=== PATIENT | female | born 1975 | race Caucasian/White ===

== ENCOUNTER → 2020-05-26 | Outpatient (CLI) | payer OTHER ==
--- NOTE | 2020-05-26 14:42 | RAD ---
XR LUMBAR SPINE 2-3V DATE: 05/26/2020 9:45 AM INDICATION: Reason: BACK PAIN / Spl. Instructions: / History: COMPARISON: None. FINDINGS: Five non-rib bearing lumbar-type vertebral bodies are present. Bones/Alignment: No evidence of acute compression fracture. 4 mm anterolisthesis at L5-S1 Joints: Multilevel degenerative disc disease, worst and moderate to severe at L5-S1. Lower lumbar fac et arthropathy. Miscellaneous: IUD overlying the pelvis IMPRESSION: Degenerative disc disease, moderate to severe at L5-S1 Electronically signed by: Hermilo Paula MD (05/26/2020 2:40 PM) [id number]
--- NOTE | 2020-05-26 14:43 | RAD ---
XR EXAM OF ANKLE_RIGHT 2 VIEWS DATE: 05/26/2020 9:45 AM INDICATION: Reason: RIGHT ANKLE PAIN / Spl. Instructions: / History: COMPARISON: None. FINDINGS: Bones: There is no evidence of acute fracture or dislocation. Joints: The ankle mortise is congruent. No widening of the distal tibiofibular syndesmosis. Miscellaneous: None. IMPRESSION: No acute osseous abnormality. Electronically signed by: Hermilo Paula MD (05/26/2020 2:40 PM) [id number]
--- NOTE | 2020-05-26 14:43 | RAD ---
XR KNEE_RT 1-2 VIEWS DATE: 05/26/2020 9:45 AM INDICATION: Reason: RIGHT KNEE PAIN / Spl. Instructions: / History: COMPARISON: None. FINDINGS: Bones: There is no evidence of acute fracture or dislocation. Joints: The joint spaces are normal. There is no joint effusion. Miscellaneous: None. IMPRESSION: Normal exam Electronically signed by: Hermilo Paula MD (05/26/2020 2:41 PM) [id number]
--- NOTE | 2020-05-26 14:44 | RAD ---
XR HIP_RT 2-3VIEWS DATE: 05/26/2020 9:45 AM INDICATION: RIGHT HIP PAIN / Spl. Instructions: / History: COMPARISON: None. FINDINGS: Bones: There is no evidence of acute fracture or dislocation. Joints: The joint spaces are normal. Miscellaneous: IUD overlying the pelvis IMPRESSION: No evidence of acute fracture. Electronically signed by: Hermilo Paula MD (05/26/2020 2:41 PM) [id number]
== END ==
LOC: DXRAD 09:31
PROVIDERS: ATTEND Family Medicine
DX: M51.37 Other intervertebral disc degeneration, lumbosacral region (principal); M54.5 Low back pain; M25.571 Pain in right ankle and joints of right foot; M25.561 Pain in right knee; M25.551 Pain in right hip
CPT/HCPCS: 72100; 73502; 73560; 73600

== ENCOUNTER → 2021-01-10 | Emergency (ER) | payer SELFPAY ==
[~2021-01-10] VITALS: Ht 157.5 cm; Wt 174.0 kg
[2021-01-10 08:25] VITALS: BP 169/102
--- NOTE | 2021-01-10 08:43 | PHYS DOC ---
Past History Past Surgical History: No Surgical History Alcohol Use: None Adult General Chief Complaint Chief Complaint: FINGER INJURY HPI HPI Patient is a 45-year-old female presenting for left thumb pain. Reports onset was several days ago without any clear trauma or known inciting event or exposure. Nothing known makes better, direct palpation and pressure make worse. Pain is sharp and focal without radiation. Timing of symptoms has been constant since onset. She reports mild swelling and erythema which concerned her for prior nailbed infections prompting her to come in for evaluation. She has no primary care physician but admits she recently obtained disability and is in process of setting up Medicare to establish primary care physician. States she has hypertension but does not like doctors and has refused medication for this in the past. No other concerning signs or symptoms such as fever, changes in motor and sensory function etc. Review of Systems Review of Systems Fourteen body systems of review of systems have been reviewed. See HPI for pertinent positives and negative responses, other bedolla all other systems are negative, non-pertinent or non-contributory Allergies Allergies Allergies Coded Allergies Type Severity Reaction Last Updated Verified No Known Drug Allergies 01/10/21 No Physical Exam Physical Exam Constitutional: Well developed, well nourished, no acute distress, non-toxic appearance. HENT: Normocephalic, atraumatic, bilateral external ears normal, oropharynx moist, no oral exudates, nose normal. Eyes: PERRLA, EOMI, conjunctiva normal, no discharge. Neck: Normal range of motion, no tenderness, supple, no stridor. Cardiovascular: Heart rate regular per monitor Lungs & Thorax: No respiratory distress or accessory muscle use, bilateral chest rise Abdomen: Abdomen soft and protuberant, non-tender, bowel sounds present in all quadrants, no guarding or rebound, nonacute abdomen. Skin: Warm, dry, no rash. Medial portion of left thumb nailbed erythematous with mild edema and pain along nailbed Back: No tenderness, no CVA tenderness. Extremities: No tenderness, no cyanosis, no clubbing, ROM intact, no edema. Neurologic: Alert and oriented X 3, grossly normal motor & sensory function, no focal deficits noted. Psychologic: Affect normal, judgement normal, mood normal. Current Patient Data Vital Signs Vital Signs Date Time Temp Pulse Resp B/P (MAP) Pulse Ox O2 Delivery O2 Flow Rate FiO2 01/10/21 08:25 98.6 18 169/102 95 Room Air EKG EKG [] Radiology/Procedures Radiology/Procedures [] Heart Score C/O Chest Pain: No Risk Factors: Risk Factors: DM, Current or recent (<one month) smoker, HTN, HLP, family history of CAD, obesity. Risk Scores: Risk Factors: DM, Current or recent (<one month) smoker, HTN, HLP, family history of CAD, obesity. Course & Med Decision Making Course & Med Decision Making Hypertensive otherwise vitals stable HPI and physical exam consistent with paronychia of left thumb nailbed and untreated hypertension in absence of any red flag signs or symptoms Incision and drainage of left thumb performed with 11 blade with significant purulent discharge expressed. Topical antibiotic cream applied Need for continued supportive care and close PCP follow-up for repeat evaluation of left thumb and to have untreated hypertension addressed advised Strict return precautions discussed with good understanding by patient, all questions and concerns addressed prior to your departure Dragon Disclaimer Dragon Disclaimer This electronic medical record was generated, in whole or in part, using a voice recognition dictation system. Incision and Drainage Incision and Drainage : Site: left medial thumb nail bed Blade Size: 11 Progress Verbal consent obtained from patient. Alcohol prep used to cleanse finger. #11 scalpel used and x1 linear incision made with immediate expulsion of purulent discharge. Patient tolerated this well without any reported or observed complications. Hemostasis achieved with direct pressure. Area cleansed and cleaned appropriately status post procedure with triple antibiotic ointment and appropriate dressing applied Departure Departure: Impression: Primary Impression: Paronychia of finger of left hand Additional Impression: HTN (hypertension) Disposition: 01 HOME / SELF CARE / HOMELESS Condition: STABLE Referrals: PCP,NO (PCP) Patient Instructions: Paronychia, [id number] Additional Instructions: As discussed prior to ER departure, you were diagnosed with a nailbed infection otherwise known as paronychia. Please use attached resources regarding this condition and need for continued supportive care that should include topical antibiotic ointment that should be applied 3 times daily for at least upcoming 5 to 10 days. Continue using warm soaks and good hand hygiene such as washing hands with warm soap and water. Please continue to establish care with a primary care physician so you can be further evaluated for this condition if it does not resolve. You also need to have your high blood pressure addressed as you are likely a candidate for by mouth medication. Please return to the ER if any concerning signs or symptoms present prior to outpatient follow-up Problem Qualifiers JOSE ALBERTO KEATING DO Jan 10, 2021 08:43
== END | disposition home or self-care (01) ==
LOC: ER 08:13
DX: L03.012 Cellulitis of left finger (principal); I10 Essential (primary) hypertension
CPT/HCPCS: 10060; 99283-25